=== PATIENT | female | born 1925 | race Caucasian/White ===

== ENCOUNTER → 2017-08-30 | Outpatient (CLI) | payer MEDICARE, MEDICAID ==
[~2017-08-30] MED LIST: AGGRENOX PO; ALEN70TA43 PO; AMLO-96 PO; AMLO-99 PO; AMOX-556 PO; ASPI81TA94 PO; AZIT-1 PO; AZIT-18 PO; BACDS PO; BIMA2.5D5 OP; BRIM5DRO7 OP; CEPH-13 PO; CHOL500045 PO; COS10OD OP; CYCL1DRO6 OP; FLU45SYR17 IM; FLU45SYR25 IM ONLY; HYDR12.556 PO; IPRN ENA; LEVO-3 PO; LEVO50TA80 PO; LEVO50TA86 PO; LEVO75TA73 PO; LISI-351 PO; LISI-353 PO; LISI30TA46 PO; LOR5/325 PO; LOVA40TA89 PO; METO-259 PO; METO50TA19 PO; MIRT7.5T2 PO; NAPR220C12 PO; OXY5 PO; OXYB10TA16 PO; OXYB15TA14 PO; OXYB5TAB80 PO; PNEU0.5D3 IM; RIFA300C50 PO; TRAZ-156 PO; [UNRECOGNIZED DRUG - CODE] PO; [UNRECOGNIZED DRUG - OTHER] PO
== END ==
LOC: LAB 13:41
PROVIDERS: ATTEND Emergency Medicine
DX: E03.9 Hypothyroidism, unspecified (principal); E55.9 Vitamin D deficiency, unspecified
CPT/HCPCS: 36415; 82306; 84443

== ENCOUNTER → 2017-09-04 | Outpatient (CLI) | payer MEDICARE, MEDICAID ==
[~2017-09-04] MED LIST changes: +LEVO25TA61 PO
--- NOTE | 2017-09-04 16:44 | EKG ---
FACILITY: [facility] PATIENT NAME: ROSALIO ROJAS : [id number] MR: [id number] V: [id number] EXAM DATE: ORDERING PHYSICIAN: JA AGUERO TECHNOLOGIST: SISI WALTER Test Reason : BRADYCARDIA Blood Pressure : / mmHG Vent. Rate : 048 BPM Atrial Rate : 048 BPM P-R Int : 178 ms QRS Dur : 158 ms QT Int : 496 ms P-R-T Axes : 067 -15 096 degrees QTc Int : 443 ms Sinus bradycardia Probable left atrial enlargement Left bundle branch block Abnormal ECG No previous ECGs available Confirmed by CHRIS RACHEL ([id number] on 09/05/2017 5:23:06 AM Referred By: Confirmed By:CHRIS RACHEL
--- NOTE | 2017-09-06 02:31 | RT HOLTER TEST ---
FACILITY: [facility] PATIENT NAME: ROSALIO ROJAS : [id number] MR: [id number] V: [id number] EXAM DATE: ORDERING PHYSICIAN: JA AGUERO TECHNOLOGIST: GURWINDER Hook-up date: 2017-09-04 17:01:00 Duration: 23:47:00 Test Indications: BRADYCARDIA Medications: 67135 QRS complexes * Ventricular ectopics which represent % of total QRS comp. 553 Supraventricular ectopics which represent <1 % of total QRS comp. * Paced QRS complexes which represent % of total QRS comp. VENTRICULAR ECTOPY * Isolated * Bigeminal Cycles * Couplets * Runs * Beats in Runs * Beats LONGEST at * BPM at :: -- * Beats FASTEST at * BPM at :: -- SUPRAVENTRICULAR ECTOPY 486 Isolated 26 Couplets 5 Runs 15 Beats in Runs 3 Beats LONGEST at 121 BPM at 07:30:24 2017-09-05 3 Beats FASTEST at 122 BPM at 08:05:16 2017-09-05 HEART RATES 29 MIN at 20:44:45 2017-09-04 49 AVG 92 MAX at 17:06:04 2017-09-04 LONGEST RR 3.104 secs at 20:44:45 2017-09-04 Channel 3 -12.800 mm MIN at 17:01:00 2017-09-04 -12.800 mm MAX at 17:01:00 2017-09-04 Marked sinus bradycardia Premature supraventricular complexes Non-specific intra-ventricular conduction block Confirmed by PETER WALLIS ([id number]) on 09/06/2017 2:31:41 AM Referred By: Overread By: PETER WALLIS
== END ==
LOC: RESP 16:37
PROVIDERS: ATTEND Emergency Medicine
DX: R00.1 Bradycardia, unspecified (principal); R94.31 Abnormal electrocardiogram [ECG] [EKG]
CPT/HCPCS: 93225